=== PATIENT | female | born 1980 | race Caucasian/White ===

== ENCOUNTER → 2019-11-07 | Outpatient (CLI) | payer OTHER | LOC: MC.RAD 10-03 09:30 | DX: Z12.31 Encounter for screening mammogram for malignant neoplasm of breast (principal) ==

== ENCOUNTER → 2020-05-17 | Outpatient (CLI) | payer OTHER | LOC: MC.RAD 07:00 | DX: N63.11 Unspecified lump in the right breast, upper outer quadrant (principal) ==

== ENCOUNTER → 2021-06-12 | Outpatient (CLI) | payer OTHER | LOC: MC.RAD 09:42 | DX: Z12.31 Encounter for screening mammogram for malignant neoplasm of breast (principal) ==